=== PATIENT | male | born 1965 | race American Indian/Alaskan Native ===

== ENCOUNTER 2019-02-20 12:57 | Emergency (ER) | payer SELFPAY ==
--- NOTE | 2019-02-20 13:25 | Event Note ---
ED Screening Note Date of service: 02/20/19 Time: 13:22 ED Screening Note: This is a 53 y.o. M. that presents to the ER with SI and hearing voices. Patient state he will use a knife to end it all. Denies HI. Admits to using marijuana and crack cocaine recently. This initial assessment/diagnostic orders/clinical plan/treatment(s) is/are subject to change based on patients health status, clinical progression and re- assessment by fellow clinical providers in the ED. Further treatment and workup at subsequent clinical providers discretion. Patient/guardian urged not to elope from the ED as their condition may be serious if not clinically assessed and managed. Initial orders include: Labs
[2019-02-20 13:28] VITALS: BP 125/70
[2019-02-20 13:49] LABS: Eosinophils # (Auto) 0.1 K/mm3 (0.0-0.4); Eosinophils % (Auto) 2.6 % (0.0-4.3); Hematocrit 42.6 % (35.5-45.6); Hemoglobin 14.1 gm/dl (11.8-15.2); Lymphocytes # (Auto) 1.3 K/mm3 (1.2-5.4); Lymphocytes % (Auto) 29.4 % (13.4-35.0); Mean Corpuscular HGB Conc 33 % (32-34); Mean Corpuscular Volume 83 fl (84-94); Monocytes # (Auto) 0.4 K/mm3 (0.0-0.8); Monocytes % (Auto) 8.5 % (0.0-7.3); Platelet Count 218 K/mm3 (140-440); Red Blood Count 5.12 M/mm3 (3.65-5.03); Red Cell Distribution Width 14.6 % (13.2-15.2)
[2019-02-20 14:01] LABS: BUN/Creatinine Ratio 11; Blood Urea Nitrogen 10 mg/dL (9-20); Calcium 9.5 mg/dL (8.4-10.2); Hemolysis Index 6
--- NOTE | 2019-02-20 14:55 | Emergency Department Report ---
ED Psych HPI - General Chief Complaint: Psych Stated Complaint: PYSCH EVAL Time Seen by Provider: 02/20/19 13:22 Source: patient Mode of arrival: Ambulatory - History of Present Illness Initial Comments: This is a 53-year-old male who reportedly some very vague suicidal ideation to triage. He is not actively expressing any suicidal ideation to me nor does state that he sat up plan. He is not apparently depressed. He does admit homelessness. He states that he has only been homeless for 2 days. He tells me that he is homeless because he got thrown out of [facility] for alcohol abuse because he "snuck out to have a beer". He does report a history of schizophrenia. However he is not displaying any delusions, loose associations or hallucinosis. MD Complaint: suicidal ideation, other (homelessness) -: days(s) Quality: resolved prior to arrival Improves With: none Worsens With: none Context: other Associated Symptoms: denies other symptoms - Related Data Home Medications Medication Instructions Recorded Confirmed Last Taken Benztropine [Cogentin] 02/20/19 Unknown Haloperidol [Haldol] 5 mg PO BID 02/20/19 02/20/19 Unknown chlorproMAZINE [Thorazine] 02/20/19 Unknown metFORMIN [Glucophage] 02/20/19 Unknown Allergies Allergy/AdvReac Type Severity Reaction Status Date / Time No Known Allergies Allergy Unverified 02/20/19 13:01 ED Review of Systems ROS: Stated complaint: PYSCH EVAL Other details as noted in HPI Constitutional: denies: chills, fever Eyes: denies: eye pain, eye discharge, vision change ENT: denies: ear pain, throat pain Respiratory: denies: cough, shortness of breath, wheezing Cardiovascular: denies: chest pain, palpitations Endocrine: no symptoms reported Gastrointestinal: denies: abdominal pain, nausea, diarrhea Genitourinary: denies: urgency, dysuria Musculoskeletal: denies: back pain, joint swelling, arthralgia Skin: denies: rash, lesions Neurological: denies: headache, weakness, paresthesias Psychiatric: as per HPI. denies: anxiety, depression Hematological/Lymphatic: denies: easy bleeding, easy bruising ED Past Medical Hx - Past Medical History Previous Medical History?: Yes Hx Diabetes: Yes Hx Psychiatric Treatment: Yes (Schizophrenia) - Surgical History Past Surgical History?: Yes Additional Surgical History: Colostomy with reversal. - Social History Smoking Status: Current Every Day Smoker Substance Use Type: Alcohol, Cocaine, Marijuana - Medications Home Medications: Home Medications Medication Instructions Recorded Confirmed Last Taken Type Benztropine [Cogentin] 02/20/19 Unknown History Haloperidol [Haldol] 5 mg PO BID 02/20/19 02/20/19 Unknown History chlorproMAZINE [Thorazine] 02/20/19 Unknown History metFORMIN [Glucophage] 02/20/19 Unknown History ED Physical Exam - General Limitations: No Limitations General appearance: alert, in no apparent distress - Head Head exam: Present: atraumatic, normocephalic - Eye Eye exam: Present: normal appearance, PERRL, EOMI. Absent: scleral icterus - ENT ENT exam: Present: mucous membranes moist - Neck Neck exam: Present: normal inspection - Respiratory Respiratory exam: Present: normal lung sounds bilaterally. Absent: respiratory distress - Cardiovascular Cardiovascular Exam: Present: regular rate, normal rhythm. Absent: systolic murmur, diastolic murmur, rubs, gallop - GI/Abdominal GI/Abdominal exam: Present: soft, normal bowel sounds. Absent: distended, tenderness, guarding, rebound, rigid - Rectal Rectal exam: Present: deferred - Extremities Exam Extremities exam: Present: normal inspection - Back Exam Back exam: Present: normal inspection - Neurological Exam Neurological exam: Present: alert, oriented X3, CN II-XII intact. Absent: motor sensory deficit - Psychiatric Psychiatric exam: Present: normal affect, normal mood - Skin Skin exam: Present: warm, dry, intact, normal color. Absent: rash ED Course Vital Signs 02/20/19 13:25 Temperature 98.2 F Pulse Rate 101 H Respiratory 18 Rate Blood Pressure 125/70 O2 Sat by Pulse 100 Oximetry - Reevaluation(s) Reevaluation #1: Nurse reported to me that the patient left without discharge. He had not yet seen by the mental health counselor. I do not feel that he yet met 1013 criteria therefore I will consider this an elopement. 02/20/19 17:30 ED Medical Decision Making - Lab Data Result diagrams: 02/20/19 13:30 02/20/19 13:30 Laboratory Results - last 24 hr 02/20/19 02/20/19 02/20/19 13:30 13:30 13:30 WBC RBC Hgb Hct MCV MCH MCHC RDW Plt Count Lymph % (Auto) [place] % (Auto) Eos % (Auto) Baso % (Auto) Lymph # [place] # Eos # Baso # Seg Neutrophils % Seg Neutrophils # Sodium 144 Potassium 3.9 Chloride 103.3 Carbon Dioxide 27 Anion Gap 18 BUN 10 Creatinine 0.9 Estimated GFR > 60 BUN/Creatinine Ratio 11 Glucose 104 H Calcium 9.5 Salicylates < 0.3 L Acetaminophen < 5.0 L Plasma/Serum Alcohol 02/20/19 02/20/19 13:30 13:30 WBC 4.3 L RBC 5.12 H Hgb 14.1 Hct 42.6 MCV 83 L MCH 28 MCHC 33 RDW 14.6 Plt Count 218 Lymph % (Auto) 29.4 [place] % (Auto) 8.5 H Eos % (Auto) 2.6 Baso % (Auto) 1.0 Lymph # 1.3 [place] # 0.4 Eos # 0.1 Baso # 0.0 Seg Neutrophils % 58.5 Seg Neutrophils # 2.5 Sodium Potassium Chloride Carbon Dioxide Anion Gap BUN Creatinine Estimated GFR BUN/Creatinine Ratio Glucose Calcium Salicylates Acetaminophen Plasma/Serum Alcohol < 0.01 Laboratory Results - last 24 hr 02/20/19 02/20/19 02/20/19 13:30 13:30 13:30 WBC RBC Hgb Hct MCV MCH MCHC RDW Plt Count Lymph % (Auto) [place] % (Auto) Eos % (Auto) Baso % (Auto) Lymph # [place] # Eos # Baso # Seg Neutrophils % Seg Neutrophils # Sodium 144 Potassium 3.9 Chloride 103.3 Carbon Dioxide 27 Anion Gap 18 BUN 10 Creatinine 0.9 Estimated GFR > 60 BUN/Creatinine Ratio 11 Glucose 104 H Calcium 9.5 Salicylates < 0.3 L Acetaminophen < 5.0 L Plasma/Serum Alcohol 02/20/19 02/20/19 13:30 13:30 WBC 4.3 L RBC 5.12 H Hgb 14.1 Hct 42.6 MCV 83 L MCH 28 MCHC 33 RDW 14.6 Plt Count 218 Lymph % (Auto) 29.4 [place] % (Auto) 8.5 H Eos % (Auto) 2.6 Baso % (Auto) 1.0 Lymph # 1.3 [place] # 0.4 Eos # 0.1 Baso # 0.0 Seg Neutrophils % 58.5 Seg Neutrophils # 2.5 Sodium Potassium Chloride Carbon Dioxide Anion Gap BUN Creatinine Estimated GFR BUN/Creatinine Ratio Glucose Calcium Salicylates Acetaminophen Plasma/Serum Alcohol < 0.01 Critical care attestation.: If time is entered above; I have spent that time in minutes in the direct care of this critically ill patient, excluding procedure time. ED Disposition Clinical Impression: Homelessness, Suicidal ideation Disposition: LEFT AGAINST MED ADVICE Is pt being admited?: No Does the pt Need Aspirin: No Condition: Stable Referrals: FLOYD ARRIAGA MD [Referring] - 3-5 Days Time of Disposition: 17:31
[2019-02-20 15:57] LABS: Bilirubin,Urine NEG (Negative); Blood,Urine NEG (Negative); Color,Urine Yellow (Yellow); Mucus,Urine FEW /HPF; Protein,Urine <15 mg/dL mg/dL (Negative); Urobilinogen,Urine < 2.0 mg/dL (<2.0)
[2019-02-20 16:00] LABS: Amphetamine Screen,Urine PRESUMPTIVE NEGATIVE; Benzodiazepines Screen,Urine PRESUMPTIVE NEGATIVE; Cannabinoid Screen,Urine PRESUMPTIVE NEGATIVE; Cocaine Screen,Urine PRESUMPTIVE NEGATIVE; Methadone Screen,Urine PRESUMPTIVE NEGATIVE; Opiate Screen,Urine PRESUMPTIVE NEGATIVE
== END 2019-02-20 17:00 | disposition left against medical advice (07) ==
LOC: ED 12:57
DX: F20.9 Schizophrenia, unspecified (principal); R45.851 Suicidal ideations; E11.9 Type 2 diabetes mellitus without complications; F17.200 Nicotine dependence, unspecified, uncomplicated; F12.10 Cannabis abuse, uncomplicated; F14.10 Cocaine abuse, uncomplicated; Z79.4 Long term (current) use of insulin
CPT/HCPCS: 36415; 80048; 80307; 80320; 81001; 85025; G0480

== ENCOUNTER 2019-02-20 18:31 | Emergency (ER) | payer MEDICARE, OTHER ==
--- NOTE | 2019-02-20 18:44 | Event Note ---
ED Screening Note Date of service: 02/20/19 Time: 18:42 ED Screening Note: This is a 53 y.o. M. that presents to the ER with thoughts of suicide. Patient was here earlier and states he left AMA to smoke a cigarette. This initial assessment/diagnostic orders/clinical plan/treatment(s) is/are s ubject to change based on patients health status, clinical progression and re- assessment by fellow clinical providers in the ED. Further treatment and workup at subsequent clinical providers discretion. Patient/guardian urged not to elope from the ED as their condition may be serious if not clinically assessed and managed. Initial orders include: Labs resulted from visit earlier today.
--- NOTE | 2019-02-20 21:29 | Emergency Department Report ---
ED Psych HPI - General Chief Complaint: Psych Stated Complaint: PYSCH EVAL Time Seen by Provider: 02/20/19 18:41 Source: patient Mode of arrival: Ambulatory Limitations: No Limitations - History of Present Illness Initial Comments: 53-year-old male with a past medical history of schizophrenia and diabetes presents to the hospital complains of auditory/visual hallucinations and suicidal ideation. Patient is currently homeless was just discharged from the [facility] program yesterday. He wants to go back into this program. Reports he has a history of suicide attempts in the past. His plan today is stating he will "cut himself or whatsoever." Patient denies any physical complaints. Patient was seen here early and had labsand urine performed and then left the department. - Related Data Home Medications Medication Instructions Recorded Confirmed Last Taken Benztropine [Cogentin] 5 mg PO BID 02/20/19 02/20/19 Unknown Haloperidol [Haldol] 5 mg PO BID 02/20/19 02/20/19 Unknown chlorproMAZINE [Thorazine] 10 mg PO PRN PRN 02/20/19 02/20/19 Unknown metFORMIN [Glucophage] 500 mg PO BID 02/20/19 02/20/19 Unknown Allergies Allergy/AdvReac Type Severity Reaction Status Date / Time No Known Allergies Allergy Unverified 02/20/19 13:01 ED Review of Systems ROS: Stated complaint: PYSCH EVAL Other details as noted in HPI Comment: All other systems reviewed and negative ED Past Medical Hx - Past Medical History Previous Medical History?: Yes Hx Diabetes: Yes Hx Psychiatric Treatment: Yes (Schizophrenia) - Surgical History Past Surgical History?: Yes Additional Surgical History: Colostomy with reversal. - Social History Smoking Status: Unknown if ever smoked Substance Use Type: None - Medications Home Medications: Home Medications Medication Instructions Recorded Confirmed Last Taken Type Benztropine [Cogentin] 5 mg PO BID 02/20/19 02/20/19 Unknown History Haloperidol [Haldol] 5 mg PO BID 02/20/19 02/20/19 Unknown History chlorproMAZINE [Thorazine] 10 mg PO PRN PRN 02/20/19 02/20/19 Unknown History metFORMIN [Glucophage] 500 mg PO BID 02/20/19 02/20/19 Unknown History ED Physical Exam - General Limitations: No Limitations - Other Other exam information: General: no acute distress Head: Atraumatic, normocephalic Eyes: Normal appearance, pupils equal and reactive to light, extraocular movements intact ENT: normal oropharynx Neck: Normal appearance, no stridor, no meningismus, no midline tenderness. Cardiovascular: Regular rate and rhythm Chest: Clear to auscultation, no wheezes, rales, or crackles Abdomen: nondistended, soft, nontender, no rebound or guarding Extremity: Normal appearance, no deformity, full range of motion Neuro: Alert and oriented 3, clear speech, no gross motor or sensory deficit Skin: No warmth, erythema ED Course Vital Signs 02/20/19 02/21/19 18:40 02:26 Temperature 98.9 F 97.7 F Pulse Rate 95 H 60 Respiratory 18 18 Rate Blood Pressure 118/76 Blood Pressure 105/58 [Right] O2 Sat by Pulse 98 99 Oximetry ED Medical Decision Making - Lab Data labs from earlier visit reviewed - Medical Decision Making Patient presents with psychosis and suicidal thoughts as severe discharge for [facility] program. Patient is homeless and I suspect that patient visits with psychiatric systems and attempted to get back into the [facility] program. 1013, mental health evaluation, and transfer form has been signed. - Differential Diagnosis psychosis, suicidal, secondary gain Critical Care Time: No Critical care attestation.: If time is entered above; I have spent that time in minutes in the direct care of this critically ill patient, excluding procedure time. ED Disposition Clinical Impression: Homelessness, Suicidal ideation, Medical clearance for psychiatric admission Disposition: [id number] PSY HOSP/PSY UNIT Is pt being admited?: No Does the pt Need Aspirin: No Condition: Stable Time of Disposition: 05:32 (awaiting acceptance)
[2019-02-20] MEDS: HALDOL PO SCH (22:19)
[2019-02-21] MEDS: GLUCOPHAGE PO SCH ×2 (10:08→18:25)
[2019-02-21] MEDS: HALDOL PO SCH ×2 (10:09→22:37)
--- NOTE | 2019-02-21 12:37 | Consultation ---
History of Present Illness - Reason for Consult Consult date: 02/21/19 Reason for consult: Mental Health Evaluation Requesting physician: DARRIAN PRECIADO - Chief Complaint Chief complaint: "I need help" - History of Present Psychiatric Illness 53 y.o. AA male who presented to the ER for AVH's and SI's. Today the patient was calm, but vague throughout the assessment. He did state that he was suicidal and took Haldol. Several attempts was made to engage the patient, but was unsuccessful. Medications and Allergies Allergies Allergy/AdvReac Type Severity Reaction Status Date / Time No Known Allergies Allergy Unverified 02/20/19 13:01 Home Medications Medication Instructions Recorded Confirmed Last Taken Type Benztropine [Cogentin] 5 mg PO BID 02/20/19 02/20/19 Unknown History Haloperidol [Haldol] 5 mg PO BID 02/20/19 02/20/19 Unknown History chlorproMAZINE [Thorazine] 10 mg PO PRN PRN 02/20/19 02/20/19 Unknown History metFORMIN [Glucophage] 500 mg PO BID 02/20/19 02/20/19 Unknown History Active Meds: Active Medications Haloperidol (Haldol) 5 mg PO BID ON LICENSE OF [facility] Last Admin: 02/21/19 10:09 Dose: 5 mg Documented by: Metformin HCl (Glucophage) 500 mg PO BIDDIAB ON LICENSE OF [facility] Last Admin: 02/21/19 10:08 Dose: 500 mg Documented by: Past psychiatric history - Past Medical History Past Medical History: other (Unabel to obtain ) Past Surgical History: Other (Unable to obtain ) - past Psychiatric treatment and history psychiatric treatment history: Unable to obtain a psy hx and fam psy hx. - Social History Social history: other (Homeless) Mental Status Exam - Vital signs Last Vital Signs Temp 98.1 F 02/21/19 09:48 Pulse 61 02/21/19 09:48 Resp 16 02/21/19 09:48 BP 133/92 02/21/19 09:48 Pulse Ox 98 02/21/19 09:48 - Exam Narrative exam: Unable to complete the MSE because the patient refused to cooperate. Results Result Diagrams: 02/21/19 21:30 Abnormal lab results 02/21/19 Range/Units 12:20 POC Glucose 108 H (70-105) All other labs normal. Assessment and Plan Assessment and plan: Impression: Today the patient was calm, but vague throughout the assessment. UDS was negative. Recommendation/Plan: Continue 1013 and reassess the patient in 24 hours. Dispo: The patient was referred to inpatient psy services. Staffed with Dr Dallas Cárdenas.
[2019-02-22 07:54] VITALS: BP 130/80
--- NOTE | 2019-02-22 09:58 | Progress Note ---
Subjective - Reason for Consult Consult date: 02/22/19 Reason for consult: Psychiatry Follow-up - Chief Complaint Chief complaint: "I will do the right thing" 53 y.o. AA male who presented to the ER for AVH's and SI's. Today the patient was calm and cooperative during the assessment. He stated he made a mistake 2 days ago when he was at [facility]. He stated that he was "kicked out the program" because he left and had a drink (etoh). He stated that he thought he could go back to the program by coming to the ER and state that he was suicidal. He stated that he was never suicidal on arrival to the ER. He stated that he is homeless and would like assistance with placement. He denies SI/HI's and AVH's. No indications of side effects of his medications. Mental Status Exam - Vital signs Last Vital Signs Temp 98.3 F 02/22/19 07:32 Pulse 65 02/22/19 07:32 Resp 16 02/22/19 07:32 BP 130/80 02/22/19 07:32 Pulse Ox 97 02/22/19 07:32 - Exam Narrative exam: MSE: Appearance: calm, cooperative Behavior: regular eye contact Speech: regular rate and tone Mood: "okay" Affect: congruent to mood Thought Process: circumstantial Thought Content: denies SI/HI's and AVH's Motor Activity: sitting up in bed Cognition: A/O x 3 Insight: fair Judgment: fair Assessment and Plan Impression: Today the patient was calm and cooperative during the assessment. UDS was negative. Recommendation/Plan: Rescind 1013. Continue home medication Haldol 5 mg PO BID. Discussed the importance to abstain from excessive alcohol consumption (etoh) with the patient, he verbalized understanding. Dispo: The patient can follow up with [facility] for outpatient psy services. Will staff with Dr Dallas Cárdenas.
[2019-02-22] MEDS: GLUCOPHAGE PO SCH (11:55)
[2019-02-22] MEDS: HALDOL PO SCH (11:57)
== END 2019-02-22 13:30 | disposition home or self-care (01) ==
LOC: EEVIPCON 18:31 → ED 18:31
DX: F20.9 Schizophrenia, unspecified (principal); R45.851 Suicidal ideations; E11.9 Type 2 diabetes mellitus without complications; Z59.0 Homelessness
CPT/HCPCS: 36415; 82947; 82962

== ENCOUNTER 2022-03-23 11:07 | Emergency (ER) | payer MEDICARE, OTHER ==
--- NOTE | 2022-03-23 13:01 | Emergency Department Report ---
ED General Adult HPI - General Chief complaint: Psych Stated complaint: SI/VISUAL HALLUCINATIONS PUI?: No Time Seen by Provider: 03/23/22 12:29 Source: patient, EMS Mode of arrival: Stretcher Limitations: No Limitations - History of Present Illness Initial comments: 56 year-old male came in today with concerns of suicidal ideation and also visual hallucination. Patient stated that he sees red folks such as Michael Cochran's. Patient stated that the people he sees are not telling him to kill himself. Patient denies homicidal ideation. Patient said that he is compliant with his medication. Patient denies any other discomfort. Patient denies fever chill night sweat dizziness blurred vision lightheadedness headache tinnitus ear pain runny nose sore throat loss of taste loss smell chest pain palpitation short breath cough abdominal pain nausea vomiting diarrhea constipation joint pain muscle pain new rash and heat or cold intolerance. - Related Data Home Medications Medication Instructions Recorded Confirmed Last Taken Benztropine [Cogentin] 5 mg PO BID 02/20/19 02/20/19 Unknown chlorproMAZINE [Thorazine] 10 mg PO PRN PRN 02/20/19 02/20/19 Unknown haloperidoL [Haldol] 5 mg PO BID 02/20/19 02/20/19 Unknown metFORMIN [Glucophage] 500 mg PO BID 02/20/19 02/20/19 Unknown Allergies Allergy/AdvReac Type Severity Reaction Status Date / Time No Known Allergies Allergy Verified 03/23/22 11:22 ED Review of Systems ROS: Stated complaint: SI/VISUAL HALLUCINATIONS Other details as noted in HPI Comment: All other systems reviewed and negative Constitutional: no symptoms reported, see HPI Eyes: as per HPI ENT: as per HPI Respiratory: no symptoms reported, see HPI Cardiovascular: as per HPI Endocrine: no symptoms reported, see HPI Gastrointestinal: as per HPI Musculoskeletal: as per HPI Skin: as per HPI Neurological: as per HPI Psychiatric: auditory hallucinations, visual hallucinations, suicidal thoughts. denies: homicidal thoughts Hematological/Lymphatic: as per HPI ED Past Medical Hx - Past Medical History Previous Medical History?: Yes Hx Diabetes: Yes Hx Psychiatric Treatment: Yes (Schizophrenia) - Surgical History Additional Surgical History: Colostomy with reversal. - Social History Smoking Status: Unknown if ever smoked Substance Use Type: None - Medications Home Medications: Home Medications Medication Instructions Recorded Confirmed Last Taken Type Benztropine [Cogentin] 5 mg PO BID 02/20/19 02/20/19 Unknown History chlorproMAZINE [Thorazine] 10 mg PO PRN PRN 02/20/19 02/20/19 Unknown History haloperidoL [Haldol] 5 mg PO BID 02/20/19 02/20/19 Unknown History metFORMIN [Glucophage] 500 mg PO BID 02/20/19 02/20/19 Unknown History ED Physical Exam - General Limitations: No Limitations General appearance: alert, in no apparent distress - Head Head exam: Present: atraumatic, normocephalic, normal inspection - Eye Eye exam: Present: normal appearance, PERRL, EOMI Pupils: Present: normal accommodation - ENT ENT exam: Present: normal exam, mucous membranes moist - Neck Neck exam: Present: normal inspection, full ROM - Respiratory Respiratory exam: Present: normal lung sounds bilaterally - Cardiovascular Cardiovascular Exam: Present: normal rhythm, bradycardia, normal heart sounds - GI/Abdominal GI/Abdominal exam: Present: soft - Extremities Exam Extremities exam: Present: normal inspection, full ROM, normal capillary refill - Back Exam Back exam: Present: normal inspection, full ROM - Neurological Exam Neurological exam: Present: alert, oriented X3, CN II-XII intact - Psychiatric Psychiatric exam: Present: flat affect, suicidal ideation. Absent: depressed, agitated, manic, homicidal ideation - Skin Skin exam: Present: normal color ED Course Vital Signs 03/23/22 11:20 Temperature 98.9 F Pulse Rate 58 L Respiratory 18 Rate Blood Pressure 154/108 [Left] O2 Sat by Pulse 99 Oximetry - Reevaluation(s) Reevaluation #1: 03/23/22 15:40 PATIENT IS MEDICALLY CLEARED FOR BEHAVIOR HEALTH EVALUATION. ED Medical Decision Making - Lab Data Result diagrams: 03/23/22 12:22 03/23/22 12:22 Critical care attestation.: If time is entered above; I have spent that time in minutes in the direct care of this critically ill patient, excluding procedure time. ED Disposition Clinical Impression: Suicidal ideation, Visual hallucination Condition: Stable Referrals: BALDOMERO GIBBS MD [Primary Care Provider] - 3-5 Days
[2022-03-23 13:07] LABS: Basophils % (Auto) 0.8 % (0.0-1.8); Eosinophils # (Auto) 0.2 K/mm3 (0.0-0.4); Eosinophils % (Auto) 3.8 % (0.0-4.3); Hematocrit 47.3 % (35.5-45.6); Hemoglobin 15.5 gm/dl (11.8-15.2); Lymphocytes # (Auto) 1.7 K/mm3 (1.2-5.4); Mean Corpuscular HGB Conc 33 % (32-34); Mean Corpuscular Volume 86 fl (84-94); Monocytes # (Auto) 0.4 K/mm3 (0.0-0.8); Monocytes % (Auto) 7.7 % (0.0-7.3); Platelet Count 205 K/mm3 (140-440); Red Blood Count 5.53 M/mm3 (3.65-5.03); Red Cell Distribution Width 16.8 % (13.2-15.2)
[2022-03-23 14:00] LABS: BUN/Creatinine Ratio 13; Blood Urea Nitrogen 14 mg/dL (9-20); Calcium 9.1 mg/dL (8.4-10.2); Hemolysis Index 9
[2022-03-23 14:37] LABS: Amphetamine Screen,Urine Negative; Benzodiazepines Screen,Urine Negative; Methadone Screen,Urine Negative; Opiate Screen,Urine Negative
[2022-03-23 15:21] LABS: Mucus,Urine FEW /HPF
[2022-03-23 15:23] LABS: Color,Urine Straw (Yellow)
[2022-03-23 15:43] LABS: Cannabinoid Screen,Urine Positive; Cocaine Screen,Urine Positive
--- NOTE | 2022-03-24 09:43 | Consultation ---
History of Present Illness - Reason for Consult Consult date: 03/24/22 Reason for consult: hallucinations - History of Present Psychiatric Illness The patient was seen today. He says he is hearing voices telling him to hurt himself. He also endorses suicidal thoughts with no plan. The patient says "I'm not living right." He endorses feeling depressed and needing help. The patient endorses cocaine use. He could not recall his dx but says he takes haldol and cogentin. The patient says he is homeless and has limited family and resources. REVIEW OF SYSTEMS Constitutional: Negative for weight loss ENT: Negative for stridor Respiratory: Negative for cough or hemoptysis All other systems reviewed and are negative MENTAL STATUS General Appearance and Behavior: age appropriate, good eye contact, cooperative, Cooperation: Cooperative Psychomotor Behavior: within normal limits Mood: depressed Affect and affective range: Congruent with stated mood Thought Process: goal directed Thought Content: hopelessness, helplessness, SI Speech: Normal volume and Regular rate and rhythm Suicidal Ideation: Yes Homicidal Ideation: Denies Hallucinations: Auditory Impulse Control: Limited Insight and Judgment: Limited Memory: Limited Attention: attentive Orientation: alert and oriented x3 Assessment Schizophrenia Cocaine Use Disorder Treatment Plan 1013 Trazodone 50mg po qhs Haldol 2mg po BID Cogentin 0.mg po BID PSYCHOTHERAPY: Supportive psychotherapy provided MEDICAL: Per primary team DELIRIUM PRECAUTIONS: Please re-orient patient frequently, keep lights on during the day, and minimize benzodiazepines and opiates as these medications could worsen patient's confusion. ELECTRIC WELDER: Defer to primary DISPOSITION: recommend acute inpatient psychiatric hospitalization at this time. Will follow. Thanks Thank you for the consult. Please contact with any questions and/or concerns Case discussed with Dr. Barrios who agrees with current disposition Medications and Allergies Allergies Allergy/AdvReac Type Severity Reaction Status Date / Time No Known Allergies Allergy Verified 03/23/22 11:22 Home Medications Medication Instructions Recorded Confirmed Last Taken Type Benztropine [Cogentin] 5 mg PO BID 02/20/19 02/20/19 Unknown History chlorproMAZINE [Thorazine] 10 mg PO PRN PRN 02/20/19 02/20/19 Unknown History haloperidoL [Haldol] 5 mg PO BID 02/20/19 02/20/19 Unknown History metFORMIN [Glucophage] 500 mg PO BID 02/20/19 02/20/19 Unknown History Mental Status Exam - Vital signs Last Vital Signs Temp 97.8 F 03/23/22 20:13 Pulse 56 L 03/23/22 20:13 Resp 18 03/23/22 20:13 BP 138/99 03/23/22 20:13 Pulse Ox 97 03/23/22 20:13 Results Result Diagrams: 03/23/22 12:22 03/23/22 12:22 Abnormal lab results 03/23/22 03/23/22 03/23/22 Range/Units 12:22 12:22 12:22 RBC 5.53 H (3.65-5.03) M/mm3 Hgb 15.5 H (11.8-15.2) gm/dl Hct 47.3 H (35.5-45.6) % RDW 16.8 H (13.2-15.2) % [place] % (Auto) 7.7 H (0.0-7.3) % Salicylates < 0.3 L (2.8-20.0) mg/dL Acetaminophen 5.0 L (10.0-30.0) ug/mL All other labs normal.
[2022-03-24] MEDS ORDERED: HALOPERIDOL 2 MG TAB PO SCH (10:00)
[2022-03-24] MEDS ORDERED: BENZTROPINE 0.5 MG TAB PO SCH (10:00)
[2022-03-24 10:35] VITALS: BP 153/91
--- NOTE | 2022-03-24 13:08 | Event Note ---
Date: 03/24/22 pt seen this morning and continue to report auditory hallucination. Pt also seen by the psychiatry team and continue to recommend inpatient facility. Pt accepted by Dr Lopez at [place] for further evaluation and treatment.
[2022-03-24] MEDS ORDERED: traZODone 50 MG TAB PO SCH (22:00)
== END 2022-03-24 16:30 ==
LOC: ED 11:07
DX: R45.851 Suicidal ideations (principal); R44.1 Visual hallucinations; E11.9 Type 2 diabetes mellitus without complications; Z20.822 Contact with and (suspected) exposure to COVID-19
CPT/HCPCS: 36415; 80048; 80307; 81001; 85025; 99285; U0003; 80320; G0480